=== PATIENT | female | born 1990 | race Caucasian/White ===

== ENCOUNTER 2016-10-02 20:46 | Emergency (ER) | payer OTHER ==
[~2016-10-02] VITALS: Ht 165.1 cm; Wt 113.4 kg
[~2016-10-02 20:46] MED LIST: AMOXICILLI400 MG/5 M PO; AMOXICILLIN500 MG PO; AMOXICILLIN875 M1 PO; AMOXIL500 MG PO; BLM PO; CITRANATAL HARM1 SG1 PO; MEDROL DOSEPAK1 PAC PO; NOR-Q-D0.35 MG PO; PREDNISONE 20MG20 MG PO; ZITHROMAX Z-PA250 M1 PO
[2016-10-02 21:50] LABS: ABSOLUTE BASOPHIL COUNT 0 /CUMM (0.0-0.2); ABSOLUTE EOSINOPHIL COUNT 0.2 /CUMM (0.0-0.7); ABSOLUTE GRANULOCYTE CT 7.2 /CUMM (1.4-6.5); ABSOLUTE LYMPH COUNT 1.7 /CUMM (1.2-3.4); ABSOLUTE MONOCYTE COUNT 0.8 /CUMM (0.10-0.60); BASOPHIL % 0.3 % (0.0-2.0); EOSINOPHIL % 1.6 % (0-5); GRANULOCYTE % 72.5 % (42.2-75.2); HEMATOCRIT 38.7 % (37-47); MEAN CORPUSCULAR HGB 27.3 PG (27.0-31.0); MEAN CORPUSCULAR HGB CONC 32.7 G/DL (33.0-37.0); MEAN CORPUSCULAR VOLUME 83.5 FL (81.0-99.0); MEAN PLATELET VOLUME 7.9 FL (7.4-10.4); PLATELET COUNT 353 /CUMM (130-400); RBC DISTRIBUTION WIDTH 15.2 % (11.5-14.5); RED BLOOD CELL CT 4.63 /CUMM (4.20-5.40); WHITE BLOOD CELL COUNT 9.9 /CUMM (4.8-10.8)
--- NOTE | 2016-10-02 22:59 | ED GI/GU/ABDOMINAL COMPLAINT ---
History of Present Illness General Chief Complaint: Abdominal Pain/Flank Pain Stated Complaint: BIBA, CRAMPS, ABD PAIN Source: patient, old records, EMS Exam Limitations: no limitations Vital Signs & Intake/Output Vital Signs & Intake/Output Vital Signs Date Time Temp Pulse Resp B/P Pulse O2 O2 Flow FiO2 Ox Delivery Rate 10/02 2099 99.1 85 18 142/86 98 Room Air Allergies Coded Allergies: NO KNOWN ALLERGIES (03/02/14) Reconcile Medications Norethindrone (Nor-Q-D) 0.35 MG TABLET 1 TAB PO DAILY BC (Reported) Triage Note: PT BIBA FROM HOME C/O LOW ABDOMINAL CRAMPING PAIN FOR 3 DAYS. STATES PAIN STARTED 3 DAYS AGO, MENSES STARTED YESTERDAY. Triage Nurses Notes Reviewed? yes LMP (ages 10-50): now ? n Is pt currently ? No Onset: 3 days Duration: day(s):, constant, continues in ED Timing: recent history Quality/Severity: aching, cramping, moderate, severe Location: lower abdomen Radiation: periumbilical Activities at Onset: none Prior Abdominal Problems: none Past Sexual History: Unobtainable at this time No Modifying Factors: none Associated Symptoms: abdominal pain HPI: 3 days prior to admission patient complains of lower abdominal pain about her C- section scar radiating to her umbilicus described as moderate to severe crampy improved for short period of time with ibuprofen. She denies fever chills nausea vomiting diarrhea chest pain cough shortness breath headache dysuria rash bleeding. She also complains of scattered abscess/pimples over abdominal wall and torso several months prior to admission. Past History Travel History Traveled to [place] past 21 day No Medical History Any Pertinent Medical History? 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 No Review of Systems Review of Systems Constitutional: Reports: no symptoms. EENTM: Reports: no symptoms. Respiratory: Reports: no symptoms. Cardiovascular: Reports: no symptoms. GI: Reports: see HPI, abdominal pain. Genitourinary: Reports: no symptoms. Musculoskeletal: Reports: no symptoms. Skin: Reports: see HPI, rash. Neurological/Psychological: Reports: no symptoms. Hematologic/Endocrine: Reports: no symptoms. Immunologic/Allergic: Reports: no symptoms. All Other Systems: Reviewed and Negative Physical Exam Physical Exam General Appearance: well developed/nourished, alert, awake, anxious, obese Head: atraumatic, normal appearance Eyes: Bilateral: normal appearance, PERRL, EOMI, normal inspection. Ears, Nose, Throat, Mouth: hearing grossly normal, moist mucous membrane Neck: normal inspection, supple, full range of motion, normal alignment Respiratory: normal breath sounds, chest non-tender, no respiratory distress, quiet respiration, lungs clear Cardiovascular: regular rate/rhythm, normal peripheral pulses, norml femoral pulses equa Peripheral Pulses: 4+ carotid (R), 4+ carotid (L) Gastrointestinal: normal bowel sounds, soft, non-tender, no organomegaly Back: normal inspection, normal range of motion Extremities: normal range of motion, no ligament instability Neurologic/Psych: no motor/sensory deficits, awake, alert, oriented x 3, normal gait, normal mood/affect, 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 No Severe Sepsis Present: No Septic Shock Present: No Progress Differential Diagnosis: kidney stone, ovarian cyst, UTI/pyelo, menstrual cramps Plan of Care: Orders Procedure Date/time Status URINE 10/02 2104 Complete URINALYSIS 10/02 2104 Complete LIPASE 10/02 2104 Complete COMPREHENSIVE METABOLIC PANEL 10/02 2104 Complete CBC WITHOUT DIFFERENTIAL 10/02 2104 Complete AMYLASE 10/02 2104 Complete Laboratory Tests 10/02/164: Urinalysis MOD H, Urine Color YEL, Urine Clarity HAZY H, Urine pH 5.5, Ur Specific [place] >= 1.030, Urine Protein NEG, Urine Ketones NEG, Urine Nitrite NEG, Urine Bilirubin NEG, Urine Urobilinogen 0.2, Ur Leukocyte Esterase NEG, Ur Microscopic SEDIMENT EXAMINED, Urine RBC 25-50 H, Urine WBC 1-3 H, Ur Epithelial Cells FEW, Urine Bacteria FEW H, Urine Mucus MANY H, Urine Hemoglobin MOD H, Urine Glucose NEG, Urine Test NEGATIVE 10/02/162: Anion Gap 14, Estimated GFR > 60, BUN/Creatinine Ratio 18.3, Glucose 100 H, Calcium 9.8, Total Bilirubin 0.9, AST 36, ALT 37, Alkaline Phosphatase 125, Total Protein 7.7, Albumin 4.3, Globulin 3.4, Albumin/Globulin Ratio 1.3, Amylase 30, Lipase 42, CBC w Diff NO MAN DIFF REQ, RBC 4.63, MCV 83.5, MCH 27.3, RDW 15.2 H, MPV 7.9, Gran % 72.5, Lymphocytes % 17.6 L, Monocytes % 8.0, Eosinophils % 1.6, Basophils % 0.3, Absolute Granulocytes 7.2 H, Absolute Lymphocytes 1.7, Absolute Monocytes 0.8 H, Absolute Eosinophils 0.2, Absolute Basophils 0, PUBS MCHC 32.7 L Initial ED EKG: none Departure Departure Time of Disposition: 2306 Disposition: HOME OR SELF CARE Condition: Stable Clinical Impression Primary Impression: Abdominal pain Qualifiers: Abdominal location: lower abdomen, unspecified Qualified Code: R10.30 - Lower abdominal pain, unspecified Secondary Impressions: Abscess of skin of abdomen, Dysmenorrhea, unspecified Referrals: BETO ELLIS,BOYD Boo Call for dermatology follow up. Departure Forms: Customer Survey General Discharge Information Prescriptions: Current Visit Scripts Doxycycline Hyclate (Vibramycin) 1 CAP PO BID #20 CAP Mupirocin Calcium (Bactroban) 1 FEI TOP TID #30 GM Ref 1 apply to affected area(s) Tramadol HCl (Ultram) 1-2 TAB PO Q6PRN PRN severe pain #30 TAB
[2016-10-02] MEDS ORDERED: BACTROBAN15 GM TOP (23:10)
[2016-10-02] MEDS ORDERED: ULTRAM50 M1 PO (23:10)
[2016-10-02] MEDS ORDERED: VIBRAMYCIN100 MG PO (23:10)
[2016-10-02] MEDS ORDERED: ESCITALOPRAM OX10 MG PO (23:20)
[2016-10-02] MEDS ORDERED: ALYACEN 1-35-21 EACH PO (23:20)
[2016-10-02 23:22] VITALS: BP 119/69
== END 2016-10-02 23:22 ==
LOC: ERH 20:46
PROVIDERS: Emergency Medicine
DX: N94.6 Dysmenorrhea, unspecified (principal); L02.211 Cutaneous abscess of abdominal wall
CPT/HCPCS: 81001; 81025